=== PATIENT | female | born 1940 | race Two or more races ===

== ENCOUNTER 2023-02-25 03:39 | Inpatient (IN) | payer MEDICARE, BC ==
[~2023-02-25] VITALS: Ht 160 cm; Wt 42.6 kg
[2023-02-25] MEDS ORDERED: LIDOCAINE 1%-EPI 1:100,000 20 ML VIAL ONE (03:45)
[2023-02-25] MEDS ORDERED: LIDOCAINE 1%-EPI 1:100,000 50 ML VIAL IJ ONE (04:00)
[2023-02-25] MEDS ORDERED: ACETAMINOPHEN 325 MG TABLET PO ONE (05:00)
[2023-02-25] MEDS ORDERED: ACETAMINOPHEN ES 500 MG TABLET ONE (05:08)
[2023-02-25] MEDS ORDERED: IBUPROFEN 400 MG TABLET ONE (09:34)
[2023-02-25] MEDS ORDERED: ACETAMINOPHEN 325 MG TABLET PO PRN (10:00)
[2023-02-25] MEDS ORDERED: IBUPROFEN 400 MG TABLET PO PRN (10:00)
[2023-02-25] MEDS ORDERED: ONDANSETRON HCL/PF 4 MG/2 ML VIAL IVP PRN (10:00)
[2023-02-25] MEDS ORDERED: ATOR10TA PO ×2 (11:01→11:15)
[2023-02-25] MEDS ORDERED: CHOL400C8 PO (11:01)
[2023-02-25] MEDS ORDERED: APIX2.5T PO (11:01)
[2023-02-25] MEDS ORDERED: ASCO100058 PO (11:01)
[2023-02-25] MEDS ORDERED: FURO-145 PO (11:01)
[2023-02-25] MEDS ORDERED: FLUT1BLS6 IH (11:01)
[2023-02-25] MEDS ORDERED: LEVO100T PO (11:01)
[2023-02-25] MEDS ORDERED: MULT-754 PO (11:01)
[2023-02-25] MEDS ORDERED: POTA10TA11 PO (11:01)
[2023-02-25] MEDS ORDERED: AMIO200T5 PO (11:01)
[2023-02-25] MEDS ORDERED: AMIO100T4 PO (11:15)
[2023-02-25] MEDS ORDERED: FURO-144 PO (11:15)
[2023-02-25] MEDS ORDERED: CHOL100053 PO (11:15)
[2023-02-25] MEDS ORDERED: MORPHINE SULFATE INJ 2 MG/ML DISP.SYRIN IV PRN (13:00)
[2023-02-25 16:29] VITALS: BP 97/65; TEMP 98.1; O2SAT 99
[2023-02-25] MEDS: HYDROCODONE/APAP 5/325MG TABLET PO PRN ×2 (17:48→23:27)
[2023-02-26 05:47] LABS: BASOPHILS # (AUTO) 0.1 K/uL (0.0-0.2); BASOPHILS % (AUTO) 1.9 % (0.0-2.0); EOSINOPHILS # (AUTO) 0.2 K/uL (0.0-0.7); EOSINOPHILS % (AUTO) 3.2 % (0.0-6.0); HEMATOCRIT 28 % (33-45); HEMOGLOBIN 9.2 g/dL (11.5-14.8); LYMPHOCYTES # (AUTO) 0.7 K/uL (0.8-4.8); LYMPHOCYTES % (AUTO) 9.4 % (20.0-44.0); MEAN CORPUSCULAR HEMOGLOBIN 34 PG (26.0-33.0); MEAN CORPUSCULAR HGB CONC 33 g/dl (31.0-36.0); MEAN CORPUSCULAR VOLUME 106 fL (82-100); MONOCYTES # (AUTO) 1.1 K/uL (0.1-1.30); MONOCYTES % (AUTO) 14.4 % (2.0-12.0); NEUTROPHILS # (AUTO) 5.4 K/uL (1.8-8.9); NEUTROPHILS % (AUTO) 71.1 % (43.0-81.0); PLATELET COUNT (AUTO) 178 K/uL (150-450); RED BLOOD CELL COUNT(AUTO) 2.67 MIL/uL (4.0-5.2); RED CELL DISTRIBUTION WIDTH 13.6 % (11.5-15.0); WHITE BLOOD COUNT (AUTO) 7.6 K/uL (4.3-11.0)
[2023-02-26 06:04] LABS: CALCIUM, SERUM 9.3 mg/dL (8.5-10.1); CARBON DIOXIDE 28 mmol/L (21-32); CHLORIDE 96 mmol/L (98-107); CREATININE 1.4 mg/dL (0.6-1.3); GLUCOSE 93 mg/dL (74-106); MAGNESIUM 3.3 mg/dL (1.8-2.4); PHOSPHORUS 5.9 mg/dL (2.5-4.9); POTASSIUM 4.8 mmol/L (3.5-5.1); SODIUM SERUM 131 mmol/L (136-145); UREA NITROGEN, BLOOD 56 mg/dL (7-18)
[2023-02-26 08:00] VITALS: BP 95/57; TEMP 97.6; O2SAT 95
[2023-02-26 10:12] LABS: BAND % (MANUAL) 1 % (0.0-5.0); EOSINOPHILS % (MANUAL) 4 % (0-4); LYMPHOCYTES % (MANUAL) 11 % (16-48); MONOCYTES % (MANUAL) 11 % (0-11.0); NEUTROPHILS % (MANUAL) 73 (42-76); PLATELET ESTIMATE ADEQUATE
[2023-02-26 10:13] LABS: ANISOCYTOSIS 1+
[2023-02-26] MEDS: CHOLECALCIFEROL (VITAMIN D 3) 400 UNIT TABLET PO SCH (11:27)
[2023-02-26] MEDS: ASCORBIC ACID 500 MG TABLET PO SCH (11:27)
[2023-02-26] MEDS: MULTIVITAMINS,THERAGRAN 1 UDTAB TABLET PO SCH (11:27)
[2023-02-26] MEDS: LEVOTHYROXINE SODIUM 100 MCG TABLET PO SCH (11:28)
[2023-02-26] MEDS: IV NS 0.9% 1,000 ML IV PRN (11:41)
[2023-02-26] MEDS: AMIODARONE HCL 200 MG TABLET PO SCH (11:58)
[2023-02-26] MEDS: HYDROCODONE/APAP 5/325MG TABLET PO PRN (16:11)
[2023-02-26 20:00] VITALS: BP 125/54; TEMP 98.1; O2SAT 94
[2023-02-26] MEDS: BUDESONIDE RESPULE INH 0.5 MG/2 ML AMPUL.NEB NEB SCH (20:22)
[2023-02-26 20:23] VITALS: O2SAT 95
[2023-02-26 20:38] VITALS: O2SAT 100
[2023-02-26] MEDS: ATORVASTATIN 10 MG TABLET PO SCH (21:22)
[2023-02-27] VITALS (7 sets, daily range): BP systolic 107–115; BP diastolic 52–54; TEMP 97.5–97.9; O2SAT 95–100
[2023-02-27 03:07] LABS: APPEARANCE,URINE CLEAR (CLEAR); BILIRUBIN,URINE NEGATIVE (NEGATIVE); BLOOD, URINE NEGATIVE Ery/uL (NEGATIVE); COLOR,URINE YELLOW (YELLOW); KETONES,URINE NEGATIVE (NEGATIVE); LEUKOCYTE ESTERASE ,URINE 2+ (NEGATIVE); NITRITE, URINE NEGATIVE (NEGATIVE); PROTEIN,URINE NEGATIVE (NEGATIVE); UGLUCOSE NEGATIVE (NEGATIVE); UROBILINOGEN,URINE 0.2 EU/dL (0.2)
[2023-02-27 03:16] LABS: CREATININE, URINE 36.4 MG/DL (30.0-125.0)
[2023-02-27 03:21] LABS: ADD URINE CULTURE YES; BACTERIA,URINE 2+ /HPF (None Seen); RBC,URINE NONE SEEN /HPF (0-2)
[2023-02-27 04:00] LABS: EOSINOPHIL,URINE None Seen
[2023-02-27 05:58] LABS: BASOPHILS # (AUTO) 0.1 K/uL (0.0-0.2); BASOPHILS % (AUTO) 1.2 % (0.0-2.0); EOSINOPHILS # (AUTO) 0.1 K/uL (0.0-0.7); EOSINOPHILS % (AUTO) 1.6 % (0.0-6.0); HEMATOCRIT 25 % (33-45); HEMOGLOBIN 8.1 g/dL (11.5-14.8); LYMPHOCYTES # (AUTO) 0.7 K/uL (0.8-4.8); LYMPHOCYTES % (AUTO) 7.6 % (20.0-44.0); MEAN CORPUSCULAR HEMOGLOBIN 34 PG (26.0-33.0); MEAN CORPUSCULAR HGB CONC 33 g/dl (31.0-36.0); MEAN CORPUSCULAR VOLUME 104 fL (82-100); MONOCYTES # (AUTO) 1.1 K/uL (0.1-1.30); MONOCYTES % (AUTO) 12.5 % (2.0-12.0); NEUTROPHILS # (AUTO) 6.7 K/uL (1.8-8.9); NEUTROPHILS % (AUTO) 77.1 % (43.0-81.0); PLATELET COUNT (AUTO) 186 K/uL (150-450); RED BLOOD CELL COUNT(AUTO) 2.37 MIL/uL (4.0-5.2); RED CELL DISTRIBUTION WIDTH 13.4 % (11.5-15.0); WHITE BLOOD COUNT (AUTO) 8.7 K/uL (4.3-11.0)
[2023-02-27 06:03] LABS: INR 0.99 (0.91-1.10); PARTIAL THROMBOPLASTIN TIME 24.5 SEC (24.3-34.3); PROTHROMBIN TIME 10.5 SECS (9.2-11.1)
[2023-02-27 06:11] LABS: LYMPHOCYTES % (MANUAL) 4 % (16-48); MONOCYTES % (MANUAL) 6 % (0-11.0); NEUTROPHILS % (MANUAL) 90 (42-76)
[2023-02-27 06:12] LABS: PLATELET ESTIMATE ADEQUATE
[2023-02-27 06:15] LABS: CREATINE KINASE, TOTAL 59 U/L (26-192)
[2023-02-27 06:17] LABS: ALANINE AMINOTRANSFERASE 24 U/L (12-78); ALBUMIN 3.1 g/dL (3.4-5.0); ALKALINE PHOSPHATASE 76 U/L (46-116); ASPARTATE AMINOTRANSFERASE 28 U/L (15-37); BILIRUBIN,TOTAL 0.4 mg/dL (0.2-1.0); CALCIUM, SERUM 9.2 mg/dL (8.5-10.1); CARBON DIOXIDE 29 mmol/L (21-32); CHLORIDE 97 mmol/L (98-107); CREATININE 1.1 mg/dL (0.6-1.3); GLUCOSE 94 mg/dL (74-106); PHOSPHORUS 4.8 mg/dL (2.5-4.9); POTASSIUM 4.9 mmol/L (3.5-5.1); SODIUM SERUM 134 mmol/L (136-145); TOTAL PROTEIN, SERUM 6.4 g/dL (6.4-8.2); UREA NITROGEN, BLOOD 44 mg/dL (7-18)
[2023-02-27] MEDS ORDERED: LIDOCAINE HCL/MPF 1% 30 ML VIAL IJ ONE (07:09)
[2023-02-27] MEDS ORDERED: BUPIVACAINE 0.5 % PF 150 MG/30 ML VIAL ONE (07:09)
[2023-02-27] MEDS: BUDESONIDE RESPULE INH 0.5 MG/2 ML AMPUL.NEB NEB SCH ×2 (07:53→20:08)
[2023-02-27] MEDS ORDERED: FENTANYL PF 250MCG/5ML AMPUL ONE (08:08)
[2023-02-27] MEDS: LEVOTHYROXINE SODIUM 100 MCG TABLET PO SCH (10:30)
[2023-02-27] MEDS: ASCORBIC ACID 500 MG TABLET PO SCH (10:31)
[2023-02-27] MEDS: AMIODARONE HCL 200 MG TABLET PO SCH (10:31)
[2023-02-27] MEDS: MULTIVITAMINS,THERAGRAN 1 UDTAB TABLET PO SCH (10:31)
[2023-02-27] MEDS: CHOLECALCIFEROL (VITAMIN D 3) 400 UNIT TABLET PO SCH (10:32)
[2023-02-27] MEDS: ATORVASTATIN 10 MG TABLET PO SCH (22:16)
[2023-02-27] MEDS: HYDROCODONE/APAP 5/325MG TABLET PO PRN (22:16)
[2023-02-28] MEDS: IV NS 0.9% 1,000 ML IV PRN (02:45)
[2023-02-28 04:00] VITALS: BP 107/62; TEMP 97.7; O2SAT 98
[2023-02-28 06:07] LABS: PTH, INTACT 14 pg/mL (15-65)
[2023-02-28 06:49] LABS: CALCIUM, SERUM 8.4 mg/dL (8.5-10.1); CARBON DIOXIDE 32 mmol/L (21-32); CHLORIDE 103 mmol/L (98-107); GLUCOSE 105 mg/dL (74-106); MAGNESIUM 2.3 mg/dL (1.8-2.4); PHOSPHORUS 3.9 mg/dL (2.5-4.9); POTASSIUM 4.4 mmol/L (3.5-5.1); SODIUM SERUM 138 mmol/L (136-145); UREA NITROGEN, BLOOD 29 mg/dL (7-18)
[2023-02-28 07:02] LABS: BASOPHILS # (AUTO) 0.1 K/uL (0.0-0.2); BASOPHILS % (AUTO) 1.2 % (0.0-2.0); EOSINOPHILS # (AUTO) 0.1 K/uL (0.0-0.7); EOSINOPHILS % (AUTO) 1.9 % (0.0-6.0); HEMATOCRIT 21 % (33-45); LYMPHOCYTES # (AUTO) 0.5 K/uL (0.8-4.8); LYMPHOCYTES % (AUTO) 6.9 % (20.0-44.0); MEAN CORPUSCULAR HEMOGLOBIN 35 PG (26.0-33.0); MEAN CORPUSCULAR HGB CONC 33 g/dl (31.0-36.0); MEAN CORPUSCULAR VOLUME 107 fL (82-100); MONOCYTES # (AUTO) 1.4 K/uL (0.1-1.30); MONOCYTES % (AUTO) 18.7 % (2.0-12.0); NEUTROPHILS # (AUTO) 5.5 K/uL (1.8-8.9); NEUTROPHILS % (AUTO) 71.3 % (43.0-81.0); PLATELET COUNT (AUTO) 187 K/uL (150-450); RED CELL DISTRIBUTION WIDTH 13.7 % (11.5-15.0); WHITE BLOOD COUNT (AUTO) 7.6 K/uL (4.3-11.0)
[2023-02-28 07:10] LABS: RED BLOOD CELL COUNT(AUTO) 1.98 MIL/uL (4.0-5.2)
[2023-02-28 07:16] LABS: HEMOGLOBIN 6.9 g/dL (11.5-14.8)
[2023-02-28 07:41] VITALS: O2SAT 97
[2023-02-28] MEDS: BUDESONIDE RESPULE INH 0.5 MG/2 ML AMPUL.NEB NEB SCH (07:41)
[2023-02-28] MEDS: LEVOTHYROXINE SODIUM 100 MCG TABLET PO SCH (07:59)
[2023-02-28 08:23] LABS: BASOPHILS # (AUTO) 0.1 K/uL (0.0-0.2); BASOPHILS % (AUTO) 0.8 % (0.0-2.0); EOSINOPHILS # (AUTO) 0.2 K/uL (0.0-0.7); EOSINOPHILS % (AUTO) 1.8 % (0.0-6.0); HEMATOCRIT 23 % (33-45); HEMOGLOBIN 7.2 g/dL (11.5-14.8); LYMPHOCYTES # (AUTO) 0.7 K/uL (0.8-4.8); LYMPHOCYTES % (AUTO) 7.6 % (20.0-44.0); MEAN CORPUSCULAR HEMOGLOBIN 35 PG (26.0-33.0); MEAN CORPUSCULAR HGB CONC 32 g/dl (31.0-36.0); MEAN CORPUSCULAR VOLUME 109 fL (82-100); MONOCYTES # (AUTO) 1.5 K/uL (0.1-1.30); MONOCYTES % (AUTO) 17.6 % (2.0-12.0); NEUTROPHILS # (AUTO) 6.2 K/uL (1.8-8.9); NEUTROPHILS % (AUTO) 72.2 % (43.0-81.0); PLATELET COUNT (AUTO) 199 K/uL (150-450); RED BLOOD CELL COUNT(AUTO) 2.08 MIL/uL (4.0-5.2); WHITE BLOOD COUNT (AUTO) 8.6 K/uL (4.3-11.0)
[2023-02-28] MEDS: AMIODARONE HCL 200 MG TABLET PO SCH (08:50)
[2023-02-28] MEDS: MULTIVITAMINS,THERAGRAN 1 UDTAB TABLET PO SCH (08:52)
[2023-02-28] MEDS: CHOLECALCIFEROL (VITAMIN D 3) 400 UNIT TABLET PO SCH (08:52)
[2023-02-28] MEDS: ASCORBIC ACID 500 MG TABLET PO SCH (08:53)
[2023-02-28 10:07] LABS: *SPE A/G RATIO 0.9 (0.7-1.7); *SPE ALBUMIN 2.9 g/dL (2.9-4.4); *SPE ALPHA-1-GLOBULIN 0.3 g/dL (0.0-0.4); *SPE ALPHA-2-GLOBULIN 0.6 g/dL (0.4-1.0); *SPE BETA GLOBULIN 0.8 g/dL (0.7-1.3); *SPE GLOBULIN, TOTAL 3.2 g/dL (2.2-3.9); *SPE M-SPIKE 0.6 g/dL (Not Observed); *SPE PROTEIN TOTAL 6.1 g/dL (6.0-8.5); *SPEGAMMA GLOBULIN 1.4 g/dL (0.4-1.8)
[2023-02-28 12:00] VITALS: BP 101/49; TEMP 98; O2SAT 99
[2023-02-28 12:55] LABS: ANISOCYTOSIS 1+; PLATELET ESTIMATE ADEQUATE
[2023-02-28 12:56] LABS: HYPOCHROMASIA 1+
[2023-02-28] MEDS: HYDROCODONE/APAP 5/325MG TABLET PO PRN (14:57)
== END 2023-02-28 18:25 | DRG 604 ==
LOC: ER 03:41 → MEDSG1 09:28
PROVIDERS: ADMIT Nurse Practitioner Acute Care; ATTEND Nurse Practitioner Acute Care
PROC: 0J9P0ZZ Drainage of Left Lower Leg Subcutaneous Tissue and Fascia, Open Approach (ICD-10-PCS; principal; 2023-02-27)
DX: S80.12XA Contusion of left lower leg, initial encounter (principal); N17.0 Acute kidney failure with tubular necrosis; E87.1 Hypo-osmolality and hyponatremia; D62 Acute posthemorrhagic anemia; I96 Gangrene, not elsewhere classified; W19.XXXA Unspecified fall, initial encounter; Y93.9 Activity, unspecified; Y92.89 Other specified places as the place of occurrence of the external cause; E03.9 Hypothyroidism, unspecified; E78.5 Hyperlipidemia, unspecified; E86.0 Dehydration; I48.91 Unspecified atrial fibrillation; Z79.01 Long term (current) use of anticoagulants; J44.9 Chronic obstructive pulmonary disease, unspecified; M81.0 Age-related osteoporosis without current pathological fracture; I13.10 Hypertensive heart and chronic kidney disease without heart failure, with stage 1 through stage 4 chronic kidney disease, or unspecified chronic kidney disease; N18.9 Chronic kidney disease, unspecified; E86.1 Hypovolemia
CPT/HCPCS: 36415; 71045-TC; 73590-TC; 80048-TC; 80053-TC; 81001; 82550-TC; 82570-TC; 83735-TC; 83970; 84100-TC; 84155; 84165; 84300-TC; 85025-TC; 85730-TC; 86850-TC; 87086-TC; 93926-TC; 94799-TC; 97110-TC; 97112-TC; 97116-TC; 97530-TC; A4223; A6209; A6253; A6403; G0378; J0690; J2270; J2405; J2704; J3010; J3490; J7030